=== PATIENT | female | born 1950 | race African-American/Black ===

== ENCOUNTER 2018-06-09 12:39 | Inpatient (IN) | payer MEDICARE ==
[~2018-06-09] VITALS: Ht 170.2 cm; Wt 111.6 kg
[2018-06-09] MEDS ORDERED: ALBUTEROL (0.083%) 2.5MG/3ML NEB HHN STA (13:17)
[2018-06-09] MEDS ORDERED: IPRATROPIUM BROMIDE (0.02%) 0.5MG/2.5ML NEB HHN STA (13:17)
[2018-06-09] MEDS ORDERED: METHYLPREDNISOLONE SOD SUCC 125 MG/2 ML VIAL IV STA (13:17)
[2018-06-09] MEDS ORDERED: FUROSEMIDE 40MG/4ML VIAL IV ONE (14:15)
[2018-06-09] MEDS ORDERED: ASPIRIN 81MG TABLET PO ONE (14:15)
[2018-06-09] MEDS ORDERED: NITROGLYCERIN 0.4MG TABLET SL SL PRN (14:15)
[2018-06-09 14:18] LABS: HEMATOCRIT. 42.4 % (36.0-48.0); HEMOGLOBIN. 13.4 g/dL (12.0-16.0); MEAN CORPUSCULAR VOLUME 91.5 fL (81.0-99.0); RED BLOOD CELL COUNT 4.64 mill/uL (4.2-5.4); RED CELL DISTRIBUTION WIDTH 15.7 % (11.6-14.6)
[2018-06-09 14:23] LABS: CHLORIDE 106 mEq/L (98-107)
[2018-06-09 14:26] LABS: INR 1.2; PARTIAL THROMBOPLASTIN TIME 35.6 sec (23.4-31.0)
[2018-06-09] MEDS ORDERED: POTASSIUM CHLORIDE 20MEQ TABLET SR PO ONE (15:00)
[2018-06-09] MEDS ORDERED: NITROGLYCERIN OINT 1GM/INCH UDPKT TD ONE (15:15)
[2018-06-09 16:28] LABS: ATYPICAL LYMPHOCYTES 3
[2018-06-09 20:00] VITALS: BP 164/76
[2018-06-09] MEDS ORDERED: GUAIFENESIN 200MG/10ML SUGAR FREE UDC PO PRN (20:00)
[2018-06-09] MEDS ORDERED: LORAZEPAM 0.5MG TABLET PO PRN (20:00)
[2018-06-09] MEDS ORDERED: NA PHOS,M-B/NA PHOS,DI-BA ENEMA 118ML PR PRN (20:00)
[2018-06-09] MEDS ORDERED: IPRATROPIUM/ALBUTEROL 0.5-3(2.5)MG/3ML NEB INH PRN (20:00)
[2018-06-09] MEDS ORDERED: DEXTROSE 50% WATER 50ML SYRINGE IV PRN (20:00)
[2018-06-09] MEDS ORDERED: ACETAMINOPHEN 325MG TABLET PO PRN (20:00)
[2018-06-09] MEDS ORDERED: ACETAMINOPHEN 650MG SUPP PR PRN (20:00)
[2018-06-09] MEDS ORDERED: DOCUSATE SODIUM 100MG CAPSULE PO PRN (20:00)
[2018-06-09] MEDS ORDERED: CLONIDINE 0.1MG TABLET PO PRN (20:00)
[2018-06-09] MEDS ORDERED: DIPHENHYDRAMINE 50MG/ML VIAL IV PRN (20:00)
[2018-06-09] MEDS ORDERED: MAGNESIUM/ALUMINUM HYDROXIDE/SIMETHICONE 30ML UDC PO PRN (20:00)
[2018-06-09] MEDS ORDERED: ONDANSETRON HCL 4MG/2ML INJ IV PRN (20:00)
[2018-06-09] MEDS: BLOOD SUGAR DIAGNOSTIC STRIP TEST SCH (21:00)
[2018-06-09] MEDS ORDERED: INSULIN LISPRO 100 UNITS/ML SUBCUT SCH (21:00)
[2018-06-09 21:40] VITALS: BP 164/76
[2018-06-09] MEDS ORDERED: LEVOFLOXACIN 500MG PREMIX 100 ML IV SCH (22:00)
[2018-06-09] MEDS ORDERED: PNEUMOCOCCAL 23-VAL P-SAC VAC 0.5 ML IM ONE (22:15)
[2018-06-09 22:54] LABS: CREATINE KINASE MB FRACTION 3.1 ng/mL (0.5-3.6)
[2018-06-09] MEDS: INSULIN LISPRO 100 UNITS/ML SUBCUT SCH (23:12)
[2018-06-09] MEDS: ENOXAPARIN 120MG/0.8ML SYR SUBCUT SCH (23:23)
[2018-06-10] VITALS: BP 166/74
[2018-06-10] MEDS: LOSARTAN POTASSIUM 50 MG TABLET PO SCH ×2 (01:52→09:04)
[2018-06-10] MEDS: DILTIAZEM HCL 30MG TABLET PO SCH ×3 (01:52→13:30)
[2018-06-10] MEDS: IPRATROPIUM/ALBUTEROL 0.5-3(2.5)MG/3ML NEB INH SCH ×4 (02:01→20:19)
[2018-06-10] MEDS ORDERED: AMIO100T4 MT (03:50)
[2018-06-10] MEDS ORDERED: APIX2.5T MT (03:50)
[2018-06-10] MEDS ORDERED: LANTUSUD SUBCUT (03:54)
[2018-06-10] MEDS ORDERED: MECL-127 MT (03:54)
[2018-06-10] MEDS ORDERED: ZOLP5TAB8 MT (03:57)
[2018-06-10] MEDS ORDERED: ATOR10TA69 MT (03:57)
[2018-06-10] MEDS ORDERED: LISI-604 MT (03:57)
[2018-06-10] MEDS ORDERED: FURO20TA4 MT (03:57)
[2018-06-10 04:00] VITALS: BP 126/75
[2018-06-10] MEDS: BLOOD SUGAR DIAGNOSTIC STRIP TEST SCH ×4 (06:51→21:00)
[2018-06-10] MEDS: INSULIN LISPRO 100 UNITS/ML SUBCUT SCH ×4 (06:52→22:31)
[2018-06-10 07:06] LABS: BG BASE EXCESS 0.7 mmol/L (-2.0-2.0); BG DEOXYHEMOGLOBIN 5.3 % (0.0-5.0); BG HCO3 ACT 24.7 mmol/L (22.0-26.0); BG METHEMOGLOBIN 0.3 % (0.0-1.5); BG OXYGEN SATURATION 94.6 % (92.0-98.5); BG OXYHEMOGLOBIN 93.4 % (94.0-97.0); BG PCO2 37.3 mmHg (35.0-45.0); BG PH 7.439 (7.350-7.450); BG PO2 73.6 mmHg (75.0-100.0); BG SAMPLE SITE RIGHT BRACHIAL; BG TOTAL HEMOGLOBIN 11.7 g/dL (12.0-18.0); BG VENT MODE ROOM AIR
[2018-06-10 07:16] LABS: CHLORIDE 107 mEq/L (98-107)
[2018-06-10 07:20] LABS: BASOPHILS % 0.2 % (0.0-2.0); HEMATOCRIT. 35.9 % (36.0-48.0); HEMOGLOBIN. 11.5 g/dL (12.0-16.0); MEAN CORPUSCULAR VOLUME 90.4 fL (81.0-99.0); MEAN PLATELET VOLUME 9.4 fl (7.4-10.4); NEUTROPHILS % 82.8 % (40.0-76.0); PLATELET 130 x1000/uL (130-400); RED BLOOD CELL COUNT 3.97 mill/uL (4.2-5.4); RED CELL DISTRIBUTION WIDTH 15.3 % (11.6-14.6)
[2018-06-10 07:24] LABS: LDL CHOLESTEROL 70 mg/dL (5-100)
[2018-06-10 07:27] LABS: CREATINE KINASE 151 IU/L (26-192); HDL CHOLESTEROL 53 mg/dL (40-59); T4 FREE 1.68 ng/dL (0.76-1.46)
[2018-06-10 08:00] VITALS: BP 146/78
[2018-06-10] MEDS: METHYLPREDNISOLONE SOD SUCC 40 MG/ML VIAL IV SCH ×2 (09:03→22:29)
[2018-06-10] MEDS: PANTOPRAZOLE SODIUM 40 MG/VIAL IV SCH (09:03)
[2018-06-10] MEDS: FUROSEMIDE 40MG/4ML VIAL IV SCH (09:03)
[2018-06-10] MEDS: ASPIRIN 81MG EC TABLET PO SCH (09:04)
[2018-06-10] MEDS: ENOXAPARIN 120MG/0.8ML SYR SUBCUT SCH ×2 (09:19→22:29)
[2018-06-10] MEDS ORDERED: INSULIN GLARGINE UD 100 UNITS/ML SYR SUBCUT SCH (11:00)
[2018-06-10] MEDS ORDERED: FUROSEMIDE 40MG/4ML VIAL IVP NR (11:30)
[2018-06-10 12:00] VITALS: BP 166/87
[2018-06-10] MEDS: HYDROCODONE/ACETAMINOPHEN 5/325MG TABLET PO PRN ×2 (13:30→22:30)
[2018-06-10 16:00] VITALS: BP 145/71
[2018-06-10] MEDS ORDERED: IOHEXOL-350 100 ML BOTTLE ONE (16:01)
[2018-06-10 19:19] LABS: CLARITY URINE CLEAR (CLEAR); COLOR URINE YELLOW (YELLOW); KETONES URINE NEGATIVE (NEGATIVE); LEUKOCYTE ESTERASE URINE NEGATIVE (NEGATIVE); NITRITE URINE NEGATIVE (NEGATIVE); OCCULT BLOOD URINE NEGATIVE (NEGATIVE); PROTEIN URINE 2+ (NEGATIVE); SPECIFIC GRAVITY URINE 1.021 (1.005-1.030)
[2018-06-10 19:34] LABS: *AMPHETAMINES SCREEN URINE NEGATIVE (NEGATIVE); *BARBITURATES SCREEN URINE NEGATIVE (NEGATIVE); *BENZODIAZEPINES SCREEN URINE NEGATIVE (NEGATIVE); *COCAINE SCREEN URINE NEGATIVE (NEGATIVE)
[2018-06-10 19:35] LABS: CANNABINOID URINE SCREEN NEGATIVE (NEGATIVE); METHADONE URINE SCREEN NEGATIVE (NEGATIVE); OPIATES URINE SCREEN PRESUMTIVE POSITIVE (NEGATIVE); PHENCYCLIDINE URINE SCREEN NEGATIVE (NEGATIVE)
[2018-06-10 19:48] LABS: HEPATITIS B SURFACE ANTIGEN NEGATIVE
[2018-06-10 20:00] VITALS: BP 166/88
[2018-06-10 20:17] LABS: HEPATITIS A AB IGM NEGATIVE (NEGATIVE)
[2018-06-10] MEDS: DILTIAZEM HCL 60MG TABLET PO SCH (22:29)
[2018-06-11] VITALS: BP 113/64
[2018-06-11] MEDS: LEVOFLOXACIN 500MG PREMIX 100 ML IV SCH (00:55)
[2018-06-11] MEDS: IPRATROPIUM/ALBUTEROL 0.5-3(2.5)MG/3ML NEB INH SCH ×4 (01:50→22:14)
[2018-06-11 04:00] VITALS: BP 149/74
[2018-06-11] MEDS: BLOOD SUGAR DIAGNOSTIC STRIP TEST SCH ×4 (06:13→21:00)
[2018-06-11] MEDS: INSULIN LISPRO 100 UNITS/ML SUBCUT SCH ×4 (06:17→21:38)
[2018-06-11] MEDS: DILTIAZEM HCL 60MG TABLET PO SCH ×3 (06:17→21:42)
[2018-06-11 07:00] LABS: HEMATOCRIT 35.9 % (36.0-48.0); HEMOGLOBIN 11.5 g/dL (12.0-16.0); MEAN CORPUSCULAR HEMOGLOBIN 29.2 pg (28.0-32.0); MEAN CORPUSCULAR VOLUME 90.7 fL (81.0-99.0); PLATELET 142 x1000/uL (130-400); RED BLOOD CELL COUNT 3.96 mill/uL (4.2-5.4); RED CELL DISTRIBUTION WIDTH 15.3 % (11.6-14.6)
[2018-06-11 07:03] LABS: CHLORIDE 103 mEq/L (98-107)
[2018-06-11 08:18] VITALS: BP 118/63
[2018-06-11] MEDS: FUROSEMIDE 40MG/4ML VIAL IV SCH (10:06)
[2018-06-11] MEDS: PANTOPRAZOLE SODIUM 40 MG/VIAL IV SCH (10:06)
[2018-06-11] MEDS: METHYLPREDNISOLONE SOD SUCC 40 MG/ML VIAL IV SCH ×2 (10:06→21:40)
[2018-06-11] MEDS: LOSARTAN POTASSIUM 50 MG TABLET PO SCH (10:07)
[2018-06-11] MEDS: ASPIRIN 81MG EC TABLET PO SCH (10:07)
[2018-06-11] MEDS: ENOXAPARIN 120MG/0.8ML SYR SUBCUT SCH ×2 (10:10→21:40)
[2018-06-11] MEDS: INSULIN GLARGINE UD 100 UNITS/ML SYR SUBCUT SCH (10:14)
[2018-06-11 12:00] VITALS: BP 141/76
[2018-06-11 16:00] VITALS: BP 116/55
[2018-06-11 20:00] VITALS: BP 148/73
[2018-06-12] VITALS (7 sets, daily range): BP systolic 115–147; BP diastolic 49–84
[2018-06-12] MEDS: LEVOFLOXACIN 500MG PREMIX 100 ML IV SCH ×2 (00:48→23:49)
[2018-06-12] MEDS: IPRATROPIUM/ALBUTEROL 0.5-3(2.5)MG/3ML NEB INH SCH ×4 (04:55→21:13)
[2018-06-12] MEDS: BLOOD SUGAR DIAGNOSTIC STRIP TEST SCH ×4 (06:26→21:00)
[2018-06-12] MEDS: DILTIAZEM HCL 60MG TABLET PO SCH ×3 (06:26→21:31)
[2018-06-12] MEDS: INSULIN LISPRO 100 UNITS/ML SUBCUT SCH ×4 (06:45→21:33)
[2018-06-12] MEDS: ASPIRIN 81MG EC TABLET PO SCH (09:42)
[2018-06-12] MEDS: PANTOPRAZOLE SODIUM 40 MG/VIAL IV SCH (09:42)
[2018-06-12] MEDS: FUROSEMIDE 40MG/4ML VIAL IV SCH (09:42)
[2018-06-12] MEDS: LOSARTAN POTASSIUM 50 MG TABLET PO SCH (09:42)
[2018-06-12] MEDS: ENOXAPARIN 120MG/0.8ML SYR SUBCUT SCH (09:44)
[2018-06-12] MEDS: METHYLPREDNISOLONE SOD SUCC 40 MG/ML VIAL IV SCH (09:46)
[2018-06-12] MEDS: INSULIN GLARGINE UD 100 UNITS/ML SYR SUBCUT SCH ×2 (09:46→21:34)
[2018-06-12] MEDS ORDERED: LORAZEPAM 0.5MG TABLET PO PRN (16:00)
[2018-06-12] MEDS: APIXABAN 5 MG TABLET PO SCH (18:33)
[2018-06-12] MEDS: HYDROCODONE/ACETAMINOPHEN 5/325MG TABLET PO PRN (23:54)
[2018-06-13] MEDS: IPRATROPIUM/ALBUTEROL 0.5-3(2.5)MG/3ML NEB INH SCH ×4 (01:34→20:28)
[2018-06-13 04:00] VITALS: BP 139/78
[2018-06-13] MEDS: BLOOD SUGAR DIAGNOSTIC STRIP TEST SCH ×4 (06:25→20:33)
[2018-06-13] MEDS: DILTIAZEM HCL 60MG TABLET PO SCH ×3 (06:25→22:55)
[2018-06-13] MEDS: INSULIN LISPRO 100 UNITS/ML SUBCUT SCH ×4 (06:26→20:57)
[2018-06-13 06:50] LABS: CHLORIDE 100 mEq/L (98-107)
[2018-06-13 08:00] VITALS: BP 145/80
[2018-06-13 08:51] LABS: HEMATOCRIT 38.2 % (36.0-48.0); HEMOGLOBIN 12.2 g/dL (12.0-16.0); MEAN CORPUSCULAR HEMOGLOBIN 28.9 pg (28.0-32.0); MEAN CORPUSCULAR VOLUME 90.2 fL (81.0-99.0); PLATELET 123 x1000/uL (130-400); RED BLOOD CELL COUNT 4.23 mill/uL (4.2-5.4); RED CELL DISTRIBUTION WIDTH 15.3 % (11.6-14.6)
[2018-06-13] MEDS ORDERED: METHYLPREDNISOLONE SOD SUCC 40 MG/ML VIAL IV SCH (09:00)
[2018-06-13] MEDS: ASPIRIN 81MG EC TABLET PO SCH (10:07)
[2018-06-13] MEDS: APIXABAN 5 MG TABLET PO SCH ×2 (10:07→17:27)
[2018-06-13] MEDS: FUROSEMIDE 40MG/4ML VIAL IV SCH (10:07)
[2018-06-13] MEDS: LOSARTAN POTASSIUM 50 MG TABLET PO SCH (10:07)
[2018-06-13] MEDS: PANTOPRAZOLE SODIUM 40 MG/VIAL IV SCH (10:07)
[2018-06-13] MEDS: INSULIN GLARGINE UD 100 UNITS/ML SYR SUBCUT SCH ×2 (10:09→22:59)
[2018-06-13 12:00] VITALS: BP 109/67
[2018-06-13] MEDS ORDERED: INSULIN LISPRO 100 UNITS/ML SUBCUT NR (13:15)
[2018-06-13 16:00] VITALS: BP 148/73
[2018-06-13 20:00] VITALS: BP 153/72
[2018-06-13] MEDS: HYDROCODONE/ACETAMINOPHEN 5/325MG TABLET PO PRN (20:54)
[2018-06-13] MEDS ORDERED: LEVOFLOXACIN 500MG TABLET PO SCH (21:00)
[2018-06-14] VITALS: BP 140/78
[2018-06-14] MEDS: IPRATROPIUM/ALBUTEROL 0.5-3(2.5)MG/3ML NEB INH SCH ×3 (01:48→14:00)
[2018-06-14 04:00] VITALS: BP 154/81
[2018-06-14] MEDS: BLOOD SUGAR DIAGNOSTIC STRIP TEST SCH ×2 (06:32→12:41)
[2018-06-14] MEDS: DILTIAZEM HCL 60MG TABLET PO SCH ×2 (06:33→14:22)
[2018-06-14] MEDS: INSULIN LISPRO 100 UNITS/ML SUBCUT SCH ×2 (06:36→12:41)
[2018-06-14 07:08] LABS: HEMATOCRIT 37.6 % (36.0-48.0); HEMOGLOBIN 11.9 g/dL (12.0-16.0); MEAN CORPUSCULAR HEMOGLOBIN 28.2 pg (28.0-32.0); MEAN CORPUSCULAR VOLUME 89.5 fL (81.0-99.0); PLATELET 131 x1000/uL (130-400); RED CELL DISTRIBUTION WIDTH 15.3 % (11.6-14.6)
[2018-06-14 08:00] VITALS: BP 132/75
[2018-06-14] MEDS ORDERED: PREDNISONE 20MG TABLET PO SCH (09:00)
[2018-06-14] MEDS: FUROSEMIDE 40MG/4ML VIAL IV SCH (09:07)
[2018-06-14] MEDS: APIXABAN 5 MG TABLET PO SCH (09:07)
[2018-06-14] MEDS: PANTOPRAZOLE SODIUM 40 MG/VIAL IV SCH (09:07)
[2018-06-14] MEDS: ASPIRIN 81MG EC TABLET PO SCH (09:08)
[2018-06-14] MEDS: LOSARTAN POTASSIUM 50 MG TABLET PO SCH (09:08)
[2018-06-14] MEDS: INSULIN GLARGINE UD 100 UNITS/ML SYR SUBCUT SCH (09:14)
[2018-06-14 12:00] VITALS: BP 133/67
[2018-06-14 13:43] VITALS: BP 136/68
[2018-06-18] MEDS ORDERED: PREDNISONE 20MG TABLET PO SCH (09:00)
[2018-06-22] MEDS ORDERED: PREDNISONE 10MG TABLET PO SCH (09:00)
== END 2018-06-14 15:30 | disposition home or self-care (01) | DRG 190 ==
LOC: ER 12:39 → 5WST 14:58 → EDBEDREQ 15:05 → EDBEDREQTM 15:05 → ENRESERV 19:43 → SUPCPDRO 19:56
PROVIDERS: ADMIT Internal Medicine; ATTEND Internal Medicine
DX: J44.1 Chronic obstructive pulmonary disease with (acute) exacerbation (principal); I50.33 Acute on chronic diastolic (congestive) heart failure; D68.59 Other primary thrombophilia; R18.8 Other ascites; I11.0 Hypertensive heart disease with heart failure; R06.03 Acute respiratory distress; I48.91 Unspecified atrial fibrillation; R16.1 Splenomegaly, not elsewhere classified; E87.6 Hypokalemia; E80.6 Other disorders of bilirubin metabolism; R91.1 Solitary pulmonary nodule; J06.9 Acute upper respiratory infection, unspecified; B19.20 Unspecified viral hepatitis C without hepatic coma; D69.6 Thrombocytopenia, unspecified; E11.65 Type 2 diabetes mellitus with hyperglycemia; I27.20 Pulmonary hypertension, unspecified; K74.60 Unspecified cirrhosis of liver; Z79.01 Long term (current) use of anticoagulants; Z79.4 Long term (current) use of insulin; Z87.891 Personal history of nicotine dependence; Z91.19 Patient's noncompliance with other medical treatment and regimen; Z88.0 Allergy status to penicillin; Z88.2 Allergy status to sulfonamides
CPT/HCPCS: 36415; 36600; 71045; 71046; 71275; 76700; 80048; 80061; 80076; 80305; 82375; 82550; 82553; 82805; 82962; 83036; 83735; 83880; 84100; 84439; 84443; 84484; 85027; 85049; 86705; 86709; 86803; 87340; 90732; 93005; 93306; 93970; 94640; 94644; 96374; 97162; 99285; C9113; J1200; J1650; J1815; J1940; J1956; J2405; J2920; J2930; J7512; J7611; J7620; Q9967

== ENCOUNTER 2018-07-08 12:45 | Emergency (ER) | payer MEDICARE ==
[~2018-07-08] VITALS: Ht 167.6 cm; Wt 107.0 kg
[~2018-07-08 12:45] MED LIST: ZOLP5TAB8 MT
[2018-07-08 12:55] VITALS: BP 176/83
== END 2018-07-08 15:04 | disposition left against medical advice (07) ==
LOC: ER 12:45
DX: H57.89 Other specified disorders of eye and adnexa (principal); Z53.21 Procedure and treatment not carried out due to patient leaving prior to being seen by health care provider

== ENCOUNTER 2018-07-25 13:13 | Inpatient (IN) | payer MEDICARE ==
[~2018-07-25] VITALS: Ht 165.1 cm; Wt 105.8 kg
[2018-07-25 14:46] LABS: BASOPHILS % 0.9 % (0.0-2.0); EOSINOPHILS % 0.8 % (0.0-5.0); HEMATOCRIT. 34.2 % (36.0-48.0); HEMOGLOBIN. 10.9 g/dL (12.0-16.0); LYMPHOCYTES % 16.2 % (20.0-50.0); MEAN CORPUSCULAR HEMOGLOBIN 28.3 pg (28.0-32.0); MEAN CORPUSCULAR VOLUME 88.6 fL (81.0-99.0); MEAN PLATELET VOLUME 7.4 fl (7.4-10.4); MONOCYTES % 13.6 % (2.0-8.0); NEUTROPHILS % 68.5 % (40.0-76.0); PLATELET 175 x1000/uL (130-400); RED BLOOD CELL COUNT 3.85 mill/uL (4.2-5.4); RED CELL DISTRIBUTION WIDTH 17.6 % (11.6-14.6)
[2018-07-25 14:54] LABS: CHLORIDE 115 mEq/L (98-107)
[2018-07-25 15:06] LABS: INR 1.2; PROTHROMBIN TIME 12.4 sec (9.1-11.1)
[2018-07-25] MEDS ORDERED: FUROSEMIDE 40MG/4ML VIAL IVP ONE (15:30)
[2018-07-25 23:45] VITALS: BP 150/93
[2018-07-26] VITALS: BP 150/93
[2018-07-26] MEDS ORDERED: IBUP-2029 PO (00:45)
[2018-07-26] MEDS ORDERED: FURO40TA5 PO (00:45)
[2018-07-26] MEDS ORDERED: ATOR10TA69 PO (00:45)
[2018-07-26] MEDS ORDERED: AMIO100T4 PO (00:45)
[2018-07-26] MEDS ORDERED: APIX5TAB PO (00:45)
[2018-07-26] MEDS ORDERED: ACETAMINOPHEN 325MG TABLET PO PRN (01:15)
[2018-07-26] MEDS ORDERED: ENOXAPARIN 40MG/0.4ML SYR SUBCUT SCH (01:15)
[2018-07-26] MEDS ORDERED: IBUPROFEN 100MG/5ML UDC PO SCH (01:45)
[2018-07-26] MEDS ORDERED: IBUPROFEN 600MG TABLET PO PRN (02:00)
[2018-07-26 02:12] LABS: CREATINE KINASE MB FRACTION 2.3 ng/mL (0.5-3.6)
[2018-07-26 04:00] VITALS: BP 135/98
[2018-07-26 08:15] VITALS: BP_SYST 126; BP_DIAS 23; BP_DIAS 93
[2018-07-26] MEDS ORDERED: ENOXAPARIN 30MG/0.3ML SYR SUBCUT SCH (09:00)
[2018-07-26] MEDS: APIXABAN 5 MG TABLET PO SCH ×2 (09:24→16:34)
[2018-07-26] MEDS: AMIODARONE HCL 200 MG TABLET PO SCH (09:25)
[2018-07-26 10:59] LABS: HEMOGLOBIN 10.7 g/dL (12.0-16.0); MEAN CORPUSCULAR HEMOGLOBIN 28.2 pg (28.0-32.0); MEAN CORPUSCULAR VOLUME 89.4 fL (81.0-99.0); PLATELET 175 x1000/uL (130-400); RED CELL DISTRIBUTION WIDTH 17.5 % (11.6-14.6)
[2018-07-26 11:07] LABS: CHLORIDE 112 mEq/L (98-107)
[2018-07-26 11:14] LABS: LDL CHOLESTEROL 72 mg/dL (5-100)
[2018-07-26 11:15] LABS: HDL CHOLESTEROL 40 mg/dL (40-59)
[2018-07-26 12:00] VITALS: BP 173/96
[2018-07-26 16:00] VITALS: BP 165/96
[2018-07-26] MEDS ORDERED: POTASSIUM CHLORIDE 20MEQ TABLET SR PO NR (16:00)
[2018-07-26] MEDS: AMLODIPINE 5MG TABLET PO SCH ×2 (16:35→20:58)
[2018-07-26] MEDS ORDERED: CLONIDINE 0.1MG TABLET PO PRN ×2 (18:00→18:08)
[2018-07-26] MEDS ORDERED: DOCUSATE SODIUM 100MG CAPSULE PO PRN (18:15)
[2018-07-26] MEDS ORDERED: DIPHENHYDRAMINE 50MG/ML VIAL IV PRN (18:15)
[2018-07-26 18:23] LABS: INR 1.2; PROTHROMBIN TIME 12.5 sec (9.1-11.1)
[2018-07-26] MEDS ORDERED: DEXTROSE 50% WATER 50ML SYRINGE IV PRN (18:30)
[2018-07-26] MEDS: FUROSEMIDE 40MG/4ML VIAL IVP SCH (18:50)
[2018-07-26] MEDS: METHYLPREDNISOLONE SOD SUCC 40 MG/ML VIAL IV SCH (18:50)
[2018-07-26 20:00] VITALS: BP 152/80
[2018-07-26 20:45] LABS: CLARITY URINE CLEAR (CLEAR); COLOR URINE YELLOW (YELLOW); KETONES URINE NEGATIVE (NEGATIVE); LEUKOCYTE ESTERASE URINE NEGATIVE (NEGATIVE); NITRITE URINE NEGATIVE (NEGATIVE); OCCULT BLOOD URINE NEGATIVE (NEGATIVE); PROTEIN URINE 3+ (NEGATIVE); SPECIFIC GRAVITY URINE 1.017 (1.005-1.030)
[2018-07-26 20:56] LABS: *AMPHETAMINES SCREEN URINE NEGATIVE (NEGATIVE); *BARBITURATES SCREEN URINE NEGATIVE (NEGATIVE); *BENZODIAZEPINES SCREEN URINE NEGATIVE (NEGATIVE)
[2018-07-26 20:57] LABS: *COCAINE SCREEN URINE NEGATIVE (NEGATIVE); CANNABINOID URINE SCREEN NEGATIVE (NEGATIVE); METHADONE URINE SCREEN NEGATIVE (NEGATIVE); OPIATES URINE SCREEN NEGATIVE (NEGATIVE); PHENCYCLIDINE URINE SCREEN NEGATIVE (NEGATIVE)
[2018-07-26] MEDS: ATORVASTATIN CALCIUM 10MG TABLET PO SCH (20:58)
[2018-07-26] MEDS: BLOOD SUGAR DIAGNOSTIC STRIP TEST SCH (20:59)
[2018-07-26] MEDS: FAMOTIDINE 20MG/2ML VIAL IV SCH (20:59)
[2018-07-26] MEDS ORDERED: ATORVASTATIN CALCIUM 10MG TABLET PO SCH (21:00)
[2018-07-26] MEDS ORDERED: ZOLPIDEM TARTRATE 5MG TABLET PO PRN (21:00)
[2018-07-26] MEDS: INSULIN LISPRO 100 UNITS/ML SUBCUT SCH (21:07)
[2018-07-26] MEDS: BUDESONIDE 0.5MG/2ML NEB HHN SCH (21:41)
[2018-07-26 22:20] LABS: BG BASE EXCESS -1.2 mmol/L (-2.0-2.0); BG CARBOXYHEMOGLOBIN 0.4 % (0.5-1.5); BG FRACTION INSPIRED OXYGEN 21; BG HCO3 ACT 23.2 mmol/L (22.0-26.0); BG METHEMOGLOBIN 0.3 % (0.0-1.5); BG OXYHEMOGLOBIN 94.3 % (94.0-97.0); BG PCO2 37.8 mmHg (35.0-45.0); BG PH 7.406 (7.350-7.450); BG PO2 77.6 mmHg (75.0-100.0); BG SAMPLE SITE RIGHT BRACHIAL; BG TOTAL HEMOGLOBIN 11.6 g/dL (12.0-18.0); BG VENT MODE ROOM AIR
[2018-07-27 04:00] VITALS: BP 133/86
[2018-07-27] MEDS: METHYLPREDNISOLONE SOD SUCC 40 MG/ML VIAL IV SCH ×2 (06:16→17:31)
[2018-07-27] MEDS: INSULIN LISPRO 100 UNITS/ML SUBCUT SCH ×3 (06:16→22:23)
[2018-07-27] MEDS: BLOOD SUGAR DIAGNOSTIC STRIP TEST SCH ×4 (06:16→21:00)
[2018-07-27 06:43] LABS: BASOPHILS % 0.5 % (0.0-2.0); HEMATOCRIT. 35.2 % (36.0-48.0); HEMOGLOBIN. 11.2 g/dL (12.0-16.0); LYMPHOCYTES % 7.9 % (20.0-50.0); MEAN CORPUSCULAR HEMOGLOBIN 28.2 pg (28.0-32.0); MEAN CORPUSCULAR VOLUME 88.4 fL (81.0-99.0); MEAN PLATELET VOLUME 7.9 fl (7.4-10.4); MONOCYTES % 3.7 % (2.0-8.0); NEUTROPHILS % 87.9 % (40.0-76.0); PLATELET 178 x1000/uL (130-400); RED BLOOD CELL COUNT 3.98 mill/uL (4.2-5.4); RED CELL DISTRIBUTION WIDTH 17.5 % (11.6-14.6)
[2018-07-27 06:56] LABS: CHLORIDE 108 mEq/L (98-107)
[2018-07-27 08:00] VITALS: BP 150/95
[2018-07-27] MEDS: FUROSEMIDE 40MG/4ML VIAL IVP SCH (08:15)
[2018-07-27] MEDS: FAMOTIDINE 20MG/2ML VIAL IV SCH ×2 (08:15→22:05)
[2018-07-27] MEDS: APIXABAN 5 MG TABLET PO SCH ×2 (08:16→17:31)
[2018-07-27] MEDS: AMIODARONE HCL 200 MG TABLET PO SCH (08:17)
[2018-07-27] MEDS: AMLODIPINE 5MG TABLET PO SCH ×2 (08:17→22:05)
[2018-07-27 12:00] VITALS: BP 148/62
[2018-07-27] MEDS ORDERED: FUROSEMIDE 40MG/4ML VIAL IVP NR (12:15)
[2018-07-27] MEDS ORDERED: INSULIN LISPRO 100 UNITS/ML SUBCUT NR (13:00)
[2018-07-27] MEDS ORDERED: INSULIN GLARGINE UD 100 UNITS/ML SYR SUBCUT ONE (13:30)
[2018-07-27] MEDS: HYDROCODONE/ACETAMINOPHEN 5/325MG TABLET PO PRN (18:45)
[2018-07-27 20:00] VITALS: BP 145/79
[2018-07-27] MEDS: ATORVASTATIN CALCIUM 10MG TABLET PO SCH (22:05)
[2018-07-28] VITALS (7 sets, daily range): BP systolic 114–158; BP diastolic 63–87
[2018-07-28] MEDS: BUDESONIDE 0.5MG/2ML NEB HHN SCH ×3 (05:07→20:22)
[2018-07-28] MEDS: BLOOD SUGAR DIAGNOSTIC STRIP TEST SCH ×4 (06:12→20:50)
[2018-07-28] MEDS: METHYLPREDNISOLONE SOD SUCC 40 MG/ML VIAL IV SCH ×2 (06:12→18:34)
[2018-07-28] MEDS: INSULIN LISPRO 100 UNITS/ML SUBCUT SCH ×4 (06:18→20:51)
[2018-07-28] MEDS: APIXABAN 5 MG TABLET PO SCH ×2 (09:22→18:34)
[2018-07-28] MEDS: FUROSEMIDE 40MG/4ML VIAL IVP SCH (09:22)
[2018-07-28] MEDS: AMIODARONE HCL 200 MG TABLET PO SCH (09:22)
[2018-07-28] MEDS: AMLODIPINE 5MG TABLET PO SCH ×2 (09:22→20:50)
[2018-07-28] MEDS: FAMOTIDINE 20MG/2ML VIAL IV SCH ×2 (09:23→20:50)
[2018-07-28] MEDS: HYDROCODONE/ACETAMINOPHEN 5/325MG TABLET PO PRN ×2 (09:27→18:40)
[2018-07-28] MEDS ORDERED: INSULIN GLARGINE UD 100 UNITS/ML SYR SUBCUT SCH (10:00)
[2018-07-28 13:04] LABS: HEMATOCRIT 34.3 % (36.0-48.0); HEMOGLOBIN 10.9 g/dL (12.0-16.0); MEAN CORPUSCULAR HEMOGLOBIN 28.2 pg (28.0-32.0); MEAN CORPUSCULAR VOLUME 89.1 fL (81.0-99.0); PLATELET 207 x1000/uL (130-400); RED BLOOD CELL COUNT 3.85 mill/uL (4.2-5.4); RED CELL DISTRIBUTION WIDTH 17.1 % (11.6-14.6)
[2018-07-28 13:20] LABS: CHLORIDE 103 mEq/L (98-107)
[2018-07-28] MEDS ORDERED: INSULIN GLARGINE UD 100 UNITS/ML SYR SUBCUT NR (18:00)
[2018-07-28] MEDS: ATORVASTATIN CALCIUM 10MG TABLET PO SCH (20:49)
[2018-07-29] VITALS: BP 127/73
[2018-07-29 04:00] VITALS: BP 128/78
[2018-07-29] MEDS: METHYLPREDNISOLONE SOD SUCC 40 MG/ML VIAL IV SCH (06:21)
[2018-07-29] MEDS: BLOOD SUGAR DIAGNOSTIC STRIP TEST SCH ×4 (06:21→21:28)
[2018-07-29] MEDS: INSULIN LISPRO 100 UNITS/ML SUBCUT SCH ×4 (06:29→21:29)
[2018-07-29 07:21] LABS: CHLORIDE 102 mEq/L (98-107)
[2018-07-29 07:22] LABS: HEMATOCRIT. 33.8 % (36.0-48.0); HEMOGLOBIN. 10.9 g/dL (12.0-16.0); MEAN CORPUSCULAR HEMOGLOBIN 28.5 pg (28.0-32.0); MEAN CORPUSCULAR VOLUME 88.7 fL (81.0-99.0); MEAN PLATELET VOLUME 8.5 fl (7.4-10.4); PLATELET 210 x1000/uL (130-400); RED BLOOD CELL COUNT 3.81 mill/uL (4.2-5.4); RED CELL DISTRIBUTION WIDTH 17.6 % (11.6-14.6)
[2018-07-29 08:00] VITALS: BP_SYST 153; BP_SYST 160; BP_DIAS 71; BP_DIAS 95
[2018-07-29] MEDS: BUDESONIDE 0.5MG/2ML NEB HHN SCH ×2 (08:31→20:51)
[2018-07-29] MEDS: FUROSEMIDE 40MG/4ML VIAL IVP SCH (09:39)
[2018-07-29] MEDS: FAMOTIDINE 20MG/2ML VIAL IV SCH ×2 (09:39→21:28)
[2018-07-29] MEDS: AMIODARONE HCL 200 MG TABLET PO SCH (09:40)
[2018-07-29] MEDS: AMLODIPINE 5MG TABLET PO SCH ×2 (09:40→21:28)
[2018-07-29] MEDS: APIXABAN 5 MG TABLET PO SCH ×2 (09:40→17:29)
[2018-07-29] MEDS ORDERED: INSULIN LISPRO 100 UNITS/ML SUBCUT NR ×2 (09:45→13:45)
[2018-07-29] MEDS: HYDROCODONE/ACETAMINOPHEN 5/325MG TABLET PO PRN ×2 (10:57→21:45)
[2018-07-29] MEDS: INSULIN GLARGINE UD 100 UNITS/ML SYR SUBCUT SCH ×2 (11:07→21:30)
[2018-07-29 12:00] VITALS: BP 160/71
[2018-07-29 16:00] VITALS: BP 146/86
[2018-07-29 20:00] VITALS: BP 157/99
[2018-07-29] MEDS ORDERED: BUDESONIDE 0.5MG/2ML NEB ONE (20:56)
[2018-07-29] MEDS: ATORVASTATIN CALCIUM 10MG TABLET PO SCH (21:28)
[2018-07-30] VITALS: BP 132/72
[2018-07-30 04:00] VITALS: BP 125/68
[2018-07-30] MEDS: BLOOD SUGAR DIAGNOSTIC STRIP TEST SCH ×4 (06:12→21:32)
[2018-07-30] MEDS: INSULIN LISPRO 100 UNITS/ML SUBCUT SCH ×4 (06:12→21:40)
[2018-07-30 06:40] LABS: HEMATOCRIT 34.1 % (36.0-48.0); HEMOGLOBIN 11.1 g/dL (12.0-16.0); MEAN CORPUSCULAR HEMOGLOBIN 28.6 pg (28.0-32.0); MEAN CORPUSCULAR VOLUME 87.7 fL (81.0-99.0); PLATELET 256 x1000/uL (130-400); RED BLOOD CELL COUNT 3.89 mill/uL (4.2-5.4); RED CELL DISTRIBUTION WIDTH 17.1 % (11.6-14.6)
[2018-07-30 06:56] LABS: CHLORIDE 101 mEq/L (98-107)
[2018-07-30 08:00] VITALS: BP 137/71
[2018-07-30 08:26] LABS: PLATELET ESTIMATE NORMAL
[2018-07-30] MEDS ORDERED: METHYLPREDNISOLONE SOD SUCC 40 MG/ML VIAL IV SCH (09:00)
[2018-07-30] MEDS: FUROSEMIDE 40MG/4ML VIAL IVP SCH (09:26)
[2018-07-30] MEDS: PREDNISONE 20MG TABLET PO SCH (09:26)
[2018-07-30] MEDS: APIXABAN 5 MG TABLET PO SCH ×2 (09:26→18:03)
[2018-07-30] MEDS: AMIODARONE HCL 200 MG TABLET PO SCH (09:26)
[2018-07-30] MEDS: FAMOTIDINE 20MG/2ML VIAL IV SCH ×2 (09:26→21:33)
[2018-07-30] MEDS: AMLODIPINE 5MG TABLET PO SCH ×2 (09:27→21:33)
[2018-07-30] MEDS: HYDROCODONE/ACETAMINOPHEN 5/325MG TABLET PO PRN ×2 (10:09→21:40)
[2018-07-30] MEDS: INSULIN GLARGINE UD 100 UNITS/ML SYR SUBCUT SCH ×2 (10:11→21:51)
[2018-07-30 12:00] VITALS: BP 144/82
[2018-07-30 16:00] VITALS: BP 148/83
[2018-07-30 20:00] VITALS: BP 155/75
[2018-07-30] MEDS: ATORVASTATIN CALCIUM 10MG TABLET PO SCH (21:33)
[2018-07-31] VITALS: BP 145/75
[2018-07-31 04:00] VITALS: BP 117/69
[2018-07-31] MEDS: BLOOD SUGAR DIAGNOSTIC STRIP TEST SCH ×4 (06:17→23:07)
[2018-07-31] MEDS: INSULIN LISPRO 100 UNITS/ML SUBCUT SCH ×4 (06:17→23:12)
[2018-07-31 08:00] VITALS: BP 146/74
[2018-07-31] MEDS: APIXABAN 5 MG TABLET PO SCH ×2 (09:59→17:40)
[2018-07-31] MEDS: PREDNISONE 20MG TABLET PO SCH (10:00)
[2018-07-31] MEDS: AMIODARONE HCL 200 MG TABLET PO SCH (10:00)
[2018-07-31] MEDS: AMLODIPINE 5MG TABLET PO SCH ×2 (10:00→23:03)
[2018-07-31] MEDS: FUROSEMIDE 40MG/4ML VIAL IVP SCH (10:01)
[2018-07-31] MEDS: FAMOTIDINE 20MG/2ML VIAL IV SCH ×2 (10:01→23:04)
[2018-07-31] MEDS: INSULIN GLARGINE UD 100 UNITS/ML SYR SUBCUT SCH ×2 (10:14→23:12)
[2018-07-31] MEDS: HYDROCODONE/ACETAMINOPHEN 5/325MG TABLET PO PRN (11:46)
[2018-07-31 15:59] VITALS: BP 140/64
[2018-07-31 20:00] VITALS: BP 122/80
[2018-07-31] MEDS: ATORVASTATIN CALCIUM 10MG TABLET PO SCH (23:03)
[2018-08-01] VITALS: BP 112/70
[2018-08-01] MEDS ORDERED: HYDROCODONE/ACETAMINOPHEN 5/325MG TABLET PO PRN (00:45)
[2018-08-01 04:00] VITALS: BP 119/59
[2018-08-01] MEDS: BLOOD SUGAR DIAGNOSTIC STRIP TEST SCH (06:43)
[2018-08-01] MEDS: INSULIN LISPRO 100 UNITS/ML SUBCUT SCH (06:51)
[2018-08-01 08:00] VITALS: BP 133/72
[2018-08-01] MEDS: APIXABAN 5 MG TABLET PO SCH (08:21)
[2018-08-01] MEDS: AMLODIPINE 5MG TABLET PO SCH (08:21)
[2018-08-01] MEDS: FUROSEMIDE 40MG/4ML VIAL IVP SCH (08:21)
[2018-08-01] MEDS: AMIODARONE HCL 200 MG TABLET PO SCH (08:21)
[2018-08-01] MEDS: FAMOTIDINE 20MG/2ML VIAL IV SCH (08:21)
[2018-08-01] MEDS: PREDNISONE 20MG TABLET PO SCH (08:22)
[2018-08-01 09:16] VITALS: BP 133/72
[2018-08-01] MEDS: INSULIN GLARGINE UD 100 UNITS/ML SYR SUBCUT SCH (10:00)
[2018-08-03] MEDS ORDERED: PREDNISONE 20MG TABLET PO SCH (09:00)
[2018-08-07] MEDS ORDERED: PREDNISONE 10MG TABLET PO SCH (09:00)
== END 2018-08-01 11:00 | disposition home or self-care (01) | DRG 190 ==
LOC: ER 13:13 → CANBEDREQ 14:48 → EDBEDREQ 15:37 → ENRESERV 20:14 → 5WST 23:49
PROVIDERS: ADMIT Internal Medicine; ATTEND Internal Medicine
DX: J44.1 Chronic obstructive pulmonary disease with (acute) exacerbation (principal); I50.33 Acute on chronic diastolic (congestive) heart failure; D68.59 Other primary thrombophilia; I48.92 Unspecified atrial flutter; I48.1 Persistent atrial fibrillation; E87.6 Hypokalemia; B19.20 Unspecified viral hepatitis C without hepatic coma; E78.5 Hyperlipidemia, unspecified; I27.20 Pulmonary hypertension, unspecified; R06.03 Acute respiratory distress; I11.0 Hypertensive heart disease with heart failure; Z96.651 Presence of right artificial knee joint; E11.65 Type 2 diabetes mellitus with hyperglycemia; E78.00 Pure hypercholesterolemia, unspecified; I87.2 Venous insufficiency (chronic) (peripheral); K74.60 Unspecified cirrhosis of liver; T38.0X5A Adverse effect of glucocorticoids and synthetic analogues, initial encounter; Z59.0 Homelessness; Z79.01 Long term (current) use of anticoagulants; Z79.4 Long term (current) use of insulin; Z87.891 Personal history of nicotine dependence; Z91.19 Patient's noncompliance with other medical treatment and regimen; Z88.0 Allergy status to penicillin; Z88.2 Allergy status to sulfonamides; Z88.8 Allergy status to other drugs, medicaments and biological substances; Z91.012 Allergy to eggs; Z79.899 Other long term (current) drug therapy
CPT/HCPCS: 36415; 36600; 71045; 76700; 80048; 80061; 80305; 82375; 82550; 82553; 82805; 82962; 83036; 83735; 83880; 84484; 85027; 87070; 93005; 93306; 93923; 93970; 94618; 94640; 96374; 99291; C1893; J1815; J1940; J2920; J3490; J7512; J7626

== ENCOUNTER 2018-09-08 00:15 | Emergency (ER) | payer MEDICARE ==
[~2018-09-08] VITALS: Ht 172.7 cm; Wt 109.0 kg
[~2018-09-08 00:15] MED LIST changes: +AMIO100T4 PO; +APIX5TAB PO; +ATOR10TA69 PO; +FURO40TA5 PO; +IBUP-2029 PO
[2018-09-08] MEDS ORDERED: MORPHINE SULFATE 4 MG/ML CPJ (NOT FOR IM USE) IV STA (00:51)
[2018-09-08 01:21] LABS: BASOPHILS % 1.1 % (0.0-2.0); EOSINOPHILS % 1.3 % (0.0-5.0); HEMATOCRIT. 33.9 % (36.0-48.0); HEMOGLOBIN. 10.8 g/dL (12.0-16.0); LYMPHOCYTES % 18.2 % (20.0-50.0); MEAN CORPUSCULAR HEMOGLOBIN 27.3 pg (28.0-32.0); MEAN CORPUSCULAR VOLUME 85.6 fL (81.0-99.0); MONOCYTES % 13.9 % (2.0-8.0); NEUTROPHILS % 65.5 % (40.0-76.0); PLATELET 199 x1000/uL (130-400); RED BLOOD CELL COUNT 3.96 mill/uL (4.2-5.4); RED CELL DISTRIBUTION WIDTH 17.9 % (11.6-14.6)
[2018-09-08 01:26] LABS: CHLORIDE 108 mEq/L (98-107)
[2018-09-08 01:28] LABS: INR 1.2; PROTHROMBIN TIME 12.1 sec (9.6-11.0)
[2018-09-08 03:45] LABS: CLARITY URINE CLEAR (CLEAR); COLOR URINE YELLOW (YELLOW); KETONES URINE NEGATIVE (NEGATIVE); LEUKOCYTE ESTERASE URINE NEGATIVE (NEGATIVE); NITRITE URINE NEGATIVE (NEGATIVE); OCCULT BLOOD URINE NEGATIVE (NEGATIVE); PH URINE 7.5 (4.5-8.0); PROTEIN URINE 3+ (NEGATIVE); SPECIFIC GRAVITY URINE 1.051 (1.005-1.030)
[2018-09-08] MEDS ORDERED: IOHEXOL-300 100 ML BOTTLE ONE (04:12)
[2018-09-08 11:01] VITALS: BP 144/87
== END 2018-09-08 11:02 | disposition home or self-care (01) ==
LOC: ER 00:15
DX: R10.11 Right upper quadrant pain (principal); R07.81 Pleurodynia; I48.91 Unspecified atrial fibrillation; I11.0 Hypertensive heart disease with heart failure; I50.9 Heart failure, unspecified; J44.9 Chronic obstructive pulmonary disease, unspecified; E11.9 Type 2 diabetes mellitus without complications; E78.00 Pure hypercholesterolemia, unspecified; Z88.0 Allergy status to penicillin; Z88.2 Allergy status to sulfonamides; Z79.899 Other long term (current) drug therapy; Z88.8 Allergy status to other drugs, medicaments and biological substances; Z91.012 Allergy to eggs; W01.0XXA Fall on same level from slipping, tripping and stumbling without subsequent striking against object, initial encounter; Y93.01 Activity, walking, marching and hiking; Y92.89 Other specified places as the place of occurrence of the external cause; Y99.8 Other external cause status
CPT/HCPCS: 36415; 70450; 71045; 74177; 80053; 81003; 83690; 85025; 85610; 85730; 86850; 86900; 86901; 96374; 99284; J2270; Q9967

== ENCOUNTER 2018-10-22 17:24 | Emergency (ER) | payer MEDICARE, OTHER ==
[~2018-10-22] VITALS: Ht 162.6 cm; Wt 100.0 kg
[2018-10-22] MEDS ORDERED: NITROGLYCERIN OINT 1GM/INCH UDPKT TD ONE (18:30)
[2018-10-22] MEDS ORDERED: FUROSEMIDE 40MG/4ML VIAL IV ONE (18:30)
[2018-10-22] MEDS ORDERED: ASPIRIN 81MG TABLET PO ONE (18:30)
[2018-10-22 18:51] LABS: BASOPHILS % 1.1 % (0.0-2.0); HEMATOCRIT. 34.6 % (36.0-48.0); HEMOGLOBIN. 11.4 g/dL (12.0-16.0); LYMPHOCYTES % 20.4 % (20.0-50.0); MEAN CORPUSCULAR HEMOGLOBIN 28.5 pg (28.0-32.0); MEAN CORPUSCULAR VOLUME 86.5 fL (81.0-99.0); MEAN PLATELET VOLUME 8.2 fl (7.4-10.4); MONOCYTES % 9.6 % (2.0-8.0); NEUTROPHILS % 66.9 % (40.0-76.0); PLATELET 185 x1000/uL (130-400); RED CELL DISTRIBUTION WIDTH 17.5 % (11.6-14.6)
[2018-10-22 18:56] LABS: CHLORIDE 110 mEq/L (98-107)
[2018-10-22 18:58] LABS: INR 1.2; PARTIAL THROMBOPLASTIN TIME 34.1 sec (23.4-31.0); PROTHROMBIN TIME 11.9 sec (9.6-11.0)
[2018-10-22 21:52] VITALS: BP 140/88
== END 2018-10-22 23:45 | disposition short-term general hospital (02) ==
LOC: ER 17:24 → CANBEDREQ 10-23 01:23
DX: I11.0 Hypertensive heart disease with heart failure (principal); J44.9 Chronic obstructive pulmonary disease, unspecified; Z99.81 Dependence on supplemental oxygen; E11.9 Type 2 diabetes mellitus without complications; I50.9 Heart failure, unspecified; I48.91 Unspecified atrial fibrillation; Z79.01 Long term (current) use of anticoagulants; E78.00 Pure hypercholesterolemia, unspecified; Z91.012 Allergy to eggs; Z88.0 Allergy status to penicillin; Z88.2 Allergy status to sulfonamides; Z91.018 Allergy to other foods
CPT/HCPCS: 36415; 71045; 80053; 83880; 84484; 85025; 85610; 85730; 93005; 96374; 99285; J1940

== ENCOUNTER 2018-12-02 14:23 | Emergency (ER) | payer MEDICARE, OTHER ==
[~2018-12-02] VITALS: Ht 165.1 cm; Wt 105.0 kg
[2018-12-02 16:18] VITALS: BP 110/86
== END 2018-12-02 19:13 | disposition left against medical advice (07) ==
LOC: ER 14:23
DX: L02.415 Cutaneous abscess of right lower limb (principal); Z53.21 Procedure and treatment not carried out due to patient leaving prior to being seen by health care provider

== ENCOUNTER 2018-12-02 20:12 | Emergency (ER) | payer MEDICARE, OTHER ==
[~2018-12-02] VITALS: Ht 167.6 cm; Wt 108.0 kg
[2018-12-02] MEDS ORDERED: BACITRACIN ZINC OINT UDPKT TOP ONE (23:15)
[2018-12-02] MEDS ORDERED: BACITRACIN 15GM TUBE TOP NR (23:45)
[2018-12-03 01:26] VITALS: BP 164/85
== END 2018-12-03 01:36 | disposition home or self-care (01) ==
LOC: ER 20:12
DX: S80.821A Blister (nonthermal), right lower leg, initial encounter (principal); I50.9 Heart failure, unspecified; E11.9 Type 2 diabetes mellitus without complications; Z91.012 Allergy to eggs; Z88.0 Allergy status to penicillin; Z88.2 Allergy status to sulfonamides; Z91.018 Allergy to other foods; Z96.651 Presence of right artificial knee joint; X58.XXXA Exposure to other specified factors, initial encounter; Y93.89 Activity, other specified; Y92.018 Other place in single-family (private) house as the place of occurrence of the external cause
CPT/HCPCS: 99283

== ENCOUNTER 2019-05-25 17:28 | Emergency (ER) | payer MEDICARE, OTHER ==
[~2019-05-25] VITALS: Ht 165.1 cm; Wt 90.0 kg
[2019-05-25] MEDS ORDERED: PREDNISONE 20MG TABLET PO STA (22:14)
[2019-05-25] MEDS ORDERED: IPRATROPIUM BROMIDE (0.02%) 0.5MG/2.5ML NEB HHN STA (22:14)
[2019-05-25] MEDS ORDERED: ALBUTEROL (0.083%) 2.5MG/3ML NEB HHN STA (22:14)
[2019-05-26 00:51] LABS: BASOPHILS % 0.9 % (0.0-2.0); EOSINOPHILS % 1.4 % (0.0-5.0); HEMATOCRIT. 39.7 % (36.0-48.0); HEMOGLOBIN. 12.8 g/dL (12.0-16.0); LYMPHOCYTES % 22.7 % (20.0-50.0); MEAN CORPUSCULAR VOLUME 89.6 fL (81.0-99.0); MEAN PLATELET VOLUME 8.4 fl (7.4-10.4); MONOCYTES % 7.2 % (2.0-8.0); NEUTROPHILS % 67.8 % (40.0-76.0); PLATELET 143 x1000/uL (130-400); RED BLOOD CELL COUNT 4.43 mill/uL (4.2-5.4); RED CELL DISTRIBUTION WIDTH 22.5 % (11.6-14.6)
[2019-05-26 00:59] LABS: CHLORIDE 109 mEq/L (98-107)
[2019-05-26 01:43] VITALS: BP 142/90
[2019-05-26 01:49] LABS: PLATELET ESTIMATE NORMAL
== END 2019-05-26 01:45 | disposition home or self-care (01) ==
LOC: ER 17:28
DX: I11.0 Hypertensive heart disease with heart failure (principal); I50.9 Heart failure, unspecified; J45.909 Unspecified asthma, uncomplicated; Z79.899 Other long term (current) drug therapy; Z88.0 Allergy status to penicillin; Z88.2 Allergy status to sulfonamides
CPT/HCPCS: 36415; 71045; 80053; 83880; 84484; 85025; 94640; 99284; J7512; J7611

== ENCOUNTER 2019-09-08 09:22 | Emergency (ER) | payer MEDICAID, MEDICARE, OTHER ==
[~2019-09-08] VITALS: Ht 167.6 cm; Wt 89.0 kg
[2019-09-08 10:39] LABS: CHLORIDE 112 mEq/L (98-107); INR 1.1; PROTHROMBIN TIME 11.5 sec (9.6-11.0)
[2019-09-08 10:42] LABS: BASOPHILS % 1.2 % (0.0-2.0); EOSINOPHILS % 2.1 % (0.0-5.0); HEMATOCRIT. 38.4 % (36.0-48.0); LYMPHOCYTES % 21.9 % (20.0-50.0); MEAN CORPUSCULAR HEMOGLOBIN 27.4 pg (28.0-32.0); MEAN CORPUSCULAR VOLUME 87.9 fL (81.0-99.0); MEAN PLATELET VOLUME 8.4 fl (7.4-10.4); MONOCYTES % 9.8 % (2.0-8.0); PLATELET 169 x1000/uL (130-400); RED BLOOD CELL COUNT 4.37 mill/uL (4.2-5.4); RED CELL DISTRIBUTION WIDTH 17.8 % (11.6-14.6)
[2019-09-08] MEDS ORDERED: IOHEXOL-300 100 ML BOTTLE ONE (10:49)
[2019-09-08] MEDS ORDERED: SODIUM CHLORIDE 0.9% 1,000 ML IV ONE (13:26)
[2019-09-08 13:50] VITALS: BP 156/93
[2019-09-08 14:23] LABS: CLARITY URINE CLEAR (CLEAR); COLOR URINE YELLOW (YELLOW); KETONES URINE NEGATIVE (NEGATIVE); LEUKOCYTE ESTERASE URINE NEGATIVE (NEGATIVE); NITRITE URINE NEGATIVE (NEGATIVE); OCCULT BLOOD URINE NEGATIVE (NEGATIVE); PH URINE 7.5 (4.5-8.0); PROTEIN URINE 2+ (NEGATIVE); SPECIFIC GRAVITY URINE 1.033 (1.005-1.030)
== END 2019-09-08 13:50 | disposition home or self-care (01) ==
LOC: ER 09:52
DX: J18.9 Pneumonia, unspecified organism (principal); J45.909 Unspecified asthma, uncomplicated; E11.9 Type 2 diabetes mellitus without complications; I11.0 Hypertensive heart disease with heart failure; I50.9 Heart failure, unspecified; Z96.659 Presence of unspecified artificial knee joint; Z88.2 Allergy status to sulfonamides; Z88.0 Allergy status to penicillin; Z79.899 Other long term (current) drug therapy; Z91.012 Allergy to eggs; Z91.018 Allergy to other foods
CPT/HCPCS: 36415; 71045; 74177; 76705; 80053; 81003; 83690; 83880; 84484; 85025; 85610; 93005; 99284; Q9967; 99285

== ENCOUNTER 2020-09-10 10:05 | Emergency (ER) | payer MEDICARE, MEDICAID ==
[~2020-09-10] VITALS: Ht 167.6 cm; Wt 93.0 kg
[2020-09-10] MEDS ORDERED: MORPHINE SULFATE 4 MG/ML CPJ (NOT FOR IM USE) IV STA (10:19)
[2020-09-10] MEDS ORDERED: ONDANSETRON HCL 4MG/2ML INJ IV STA (10:19)
[2020-09-10 11:18] LABS: CLARITY URINE CLEAR (CLEAR); COLOR URINE YELLOW (YELLOW); KETONES URINE NEGATIVE (NEGATIVE); LEUKOCYTE ESTERASE URINE NEGATIVE (NEGATIVE); NITRITE URINE NEGATIVE (NEGATIVE); OCCULT BLOOD URINE NEGATIVE (NEGATIVE); PROTEIN URINE TRACE (NEGATIVE); SPECIFIC GRAVITY URINE 1.011 (1.005-1.030); UROBILINOGEN URINE 0.2 E.U./dL (0.2-1.0)
[2020-09-10 11:20] LABS: BASOPHILS % 1.1 % (0.0-2.0); EOSINOPHILS % 2.2 % (0.0-5.0); HEMATOCRIT. 38.5 % (36.0-48.0); HEMOGLOBIN. 12.6 g/dL (12.0-16.0); LYMPHOCYTES % 16.1 % (20.0-50.0); MEAN CORPUSCULAR HEMOGLOBIN 26.6 pg (28.0-32.0); MEAN CORPUSCULAR VOLUME 81.6 fL (81.0-99.0); MEAN PLATELET VOLUME 8.3 fl (7.4-10.4); MONOCYTES % 7.9 % (2.0-8.0); NEUTROPHILS % 72.7 % (40.0-76.0); PLATELET 297 x1000/uL (130-400); RED BLOOD CELL COUNT 4.72 mill/uL (4.2-5.4); RED CELL DISTRIBUTION WIDTH 19.7 % (11.6-14.6)
[2020-09-10] MEDS ORDERED: MORPHINE SULFATE 4 MG/ML CPJ (NOT FOR IM USE) IV ONE (11:45)
[2020-09-10 12:01] LABS: CHLORIDE 107 mEq/L (98-107)
[2020-09-10 12:05] LABS: INR 1.1
[2020-09-10] MEDS ORDERED: OXYC-100 PO (13:15)
[2020-09-10] MEDS ORDERED: IBUP-2028 PO (13:15)
[2020-09-10 13:28] VITALS: BP 149/80
[2020-09-14] MEDS ORDERED: HYDR453.3 TP (11:50)
[2020-09-14] MEDS ORDERED: INSNPH SUBCUT (11:50)
[2020-09-14] MEDS ORDERED: TOPUD MT (11:50)
[2020-09-14] MEDS ORDERED: BACI3.5O24 OP (11:50)
[2020-09-14] MEDS ORDERED: LEVVL SQ (11:50)
[2020-09-14] MEDS ORDERED: [UNRECOGNIZED DRUG - CODE] TP (11:50)
== END 2020-09-10 14:02 | disposition home or self-care (01) ==
LOC: ER 10:05
DX: R10.9 Unspecified abdominal pain (principal); I11.0 Hypertensive heart disease with heart failure; I50.9 Heart failure, unspecified; E11.9 Type 2 diabetes mellitus without complications; J45.909 Unspecified asthma, uncomplicated; Z88.0 Allergy status to penicillin; Z88.2 Allergy status to sulfonamides; Z91.012 Allergy to eggs; Z91.018 Allergy to other foods; Z96.659 Presence of unspecified artificial knee joint
CPT/HCPCS: 36415; 74176; 80053; 81003; 83690; 85025; 85610; 93005; 96374; 96375; 99284; J2270; J2405

== ENCOUNTER 2021-03-02 17:06 | Emergency (ER) | payer OTHER, MEDICAID ==
[~2021-03-02] VITALS: Ht 167.6 cm; Wt 91.0 kg
[~2021-03-02 17:06] MED LIST changes: +BACI3.5O24 OP; +HYDR453.3 TP; +IBUP-2028 PO; +INSNPH SUBCUT; +LEVVL SQ; +OXYC-100 PO; +TOPUD MT; +[UNRECOGNIZED DRUG - CODE] TP
[2021-03-02] MEDS ORDERED: HYDROCODONE/ACETAMINOPHEN 5/325MG TABLET PO STA (17:55)
[2021-03-02 18:44] LABS: BASOPHILS % 1.1 % (0.0-2.0); EOSINOPHILS % 1.7 % (0.0-5.0); HEMATOCRIT. 36.7 % (36.0-48.0); HEMOGLOBIN. 11.7 g/dL (12.0-16.0); LYMPHOCYTES % 19.1 % (20.0-50.0); MEAN CORPUSCULAR HEMOGLOBIN 28.8 pg (28.0-32.0); MEAN CORPUSCULAR VOLUME 90.3 fL (81.0-99.0); MONOCYTES % 12.2 % (2.0-8.0); NEUTROPHILS % 65.9 % (40.0-76.0); PLATELET 191 x1000/uL (130-400); RED BLOOD CELL COUNT 4.07 mill/uL (4.2-5.4); RED CELL DISTRIBUTION WIDTH 17.5 % (11.6-14.6)
[2021-03-02 18:54] LABS: CHLORIDE 112 mEq/L (98-107)
[2021-03-02 18:58] LABS: INR 1.2; PROTHROMBIN TIME 12.6 sec (9.6-11.0)
[2021-03-02] MEDS ORDERED: HYDROCODONE/ACETAMINOPHEN 5/325MG TABLET PO SCH (22:45)
[2021-03-03 00:30] VITALS: BP 126/83
== END 2021-03-03 00:30 | disposition home or self-care (01) ==
LOC: ER 17:06
DX: R06.02 Shortness of breath (principal); I11.0 Hypertensive heart disease with heart failure; I50.9 Heart failure, unspecified; E11.9 Type 2 diabetes mellitus without complications; Z53.21 Procedure and treatment not carried out due to patient leaving prior to being seen by health care provider
CPT/HCPCS: 36415; 71045; 80053; 83880; 84484; 85025; 99284

== ENCOUNTER 2021-07-05 02:39 | Emergency (ER) | payer MEDICARE, MEDICAID ==
[~2021-07-05] VITALS: Ht 170.2 cm; Wt 71.0 kg
[2021-07-05] MEDS ORDERED: ACETAMINOPHEN 500MG TABLET PO ONE (05:30)
[2021-07-05] MEDS ORDERED: ACET-2708 MT (06:16)
[2021-07-05 07:00] VITALS: BP 145/88
== END 2021-07-05 07:04 | disposition home or self-care (01) ==
LOC: ER 02:39
DX: K42.9 Umbilical hernia without obstruction or gangrene (principal); E11.9 Type 2 diabetes mellitus without complications; I11.0 Hypertensive heart disease with heart failure; I50.9 Heart failure, unspecified; Z79.4 Long term (current) use of insulin; Z91.012 Allergy to eggs; Z88.2 Allergy status to sulfonamides; Z91.018 Allergy to other foods; Z88.0 Allergy status to penicillin
CPT/HCPCS: 99282; J7040